=== PATIENT | female | born 1965 | race Two or more races ===

== ENCOUNTER 2021-03-27 07:27 | Outpatient (CLI) | payer OTHER ==
[~2021-03-27 07:27] MED LIST: ATENOLOL25 MG; AVAPRO75 MG; EFFEXOR XR150 MG; GLIMEPIRIDE4 MG; HUMALOG MIX 75/10 ML; INTESTINEX680 MG; JANUMET 50-501 UDTAB; MIRALAX510 GM PO; SYNTHROID50 MCG PO
== END 2021-03-27 07:29 | disposition home or self-care (01) ==
LOC: NUCLEAR 07:27
PROVIDERS: ATTEND Internal Medicine Gastroenterology
DX: E11.43 Type 2 diabetes mellitus with diabetic autonomic (poly)neuropathy (principal)
CPT/HCPCS: 78264; A9541

== ENCOUNTER 2023-04-27 21:40 | Emergency (ER) | payer OTHER ==
[~2023-04-27] VITALS: Ht 162.6 cm; Wt 145.1 kg
[2023-04-27] MEDS ORDERED: TOUJEO MAX300 UNIT/1 SQ (23:51)
[2023-04-27] MEDS ORDERED: ATORVASTATIN CA40 MG (23:51)
[2023-04-27] MEDS ORDERED: GLIPIZIDE5 MG PO (23:52)
[2023-04-27] MEDS ORDERED: AMANTADINE100 MG PO (23:52)
[2023-04-27] MEDS ORDERED: CLONAZEPAM2 MG PO (23:52)
[2023-04-27] MEDS ORDERED: DALFAMPRIDINE E10 MG PO (23:53)
[2023-04-27] MEDS ORDERED: OCREVUS300 MG/10 IV (23:53)
[2023-04-28] MEDS ORDERED: BACTRIM DS TAB1 EACH PO (08:09)
== END 2023-04-28 08:21 | disposition home or self-care (01) ==
LOC: ER 21:40
DX: N39.0 Urinary tract infection, site not specified (principal); E11.9 Type 2 diabetes mellitus without complications; Z79.4 Long term (current) use of insulin
CPT/HCPCS: 36415; 96372; 99282; J0696